=== PATIENT | male | born 1950 | race Caucasian/White ===

== ENCOUNTER → 2018-08-21 | Outpatient (CLI) | payer OTHER, BC ==
[~2018-08-21] VITALS: Ht 182.9 cm; Wt 92.1 kg
[~2018-08-21] MED LIST: ASPIR 8181 MG PO; LIPITOR10 MG PO; NEXIUM40 MG PO
== END | disposition home or self-care (01) ==
LOC: GI 08:26
DX: Z12.11 Encounter for screening for malignant neoplasm of colon (principal); Z80.0 Family history of malignant neoplasm of digestive organs; K57.30 Diverticulosis of large intestine without perforation or abscess without bleeding; K64.8 Other hemorrhoids; E78.00 Pure hypercholesterolemia, unspecified; K21.9 Gastro-esophageal reflux disease without esophagitis; Z98.890 Other specified postprocedural states; Z87.19 Personal history of other diseases of the digestive system; Z79.82 Long term (current) use of aspirin; Z79.899 Other long term (current) drug therapy
CPT/HCPCS: 62110; 62900